=== PATIENT | female | born 1990 ===

== ENCOUNTER 2017-04-02 14:24 | Emergency (ER) | payer MEDICAID, OTHER ==
[2017-04-02 14:30] VITALS: BP 147/86; RESP 20; O2SAT 100
--- NOTE | 2017-04-02 14:40 | ED PDOC ---
HPI: CCC, URI, Sore Throat Time Seen by Provider: 04/02/17 14:33 Chief Complaint (Nursing): ENT Problem Chief Complaint (Provider): Fever and Body Aches History Per: Patient History/Exam Limitations: no limitations Have you had recent travel within the past 21 days to any of the following countries: [place], [place], [place] or [place]?: No Onset/Duration Of Symptoms: Days Current Symptoms Are (Timing): Still Present Location Of Pain: Throat Associated Symptoms: Fever Additional Complaint(s): Juani Mays, a 26 year old female, presents to the ED complaining of fever, body aches and throat pain. The patient reports that she was recently diagnosed with a tonsil infection and was prescribed antibiotics but is unsure of the name of the antibiotics. She states that she took tylenol for pain around 11am this morning. PMD: Tristan Grossman Past Medical History Reviewed: Historical Data, Nursing Documentation, Vital Signs Vital Signs: Last Vital Signs Temp 100.7 F H 04/02/17 15:38 Pulse 104 H 04/02/17 15:38 Resp 20 04/02/17 14:25 BP 147/86 04/02/17 14:25 Pulse Ox 100 04/02/17 16:01 - Medical History PMH: No Chronic Diseases Denies: Chronic Kidney Disease - Surgical History Surgical History: Cholecystectomy - Family History Family History: States: Unknown Family Hx - Immunization History Hx Tetanus Toxoid Vaccination: No Hx Influenza Vaccination: No Hx Pneumococcal Vaccination: No - Home Medications Home Medications: Ambulatory Orders Medication Instructions Recorded Mag&Al/Simet/Diphen/Lido [First 30 ml MM DAILY #1 kit 04/02/17 Magic Mouthwash] - Allergies Allergies/Adverse Reactions: Allergies Allergy/AdvReac Type Severity Reaction Status Date / Time No Known Allergies Allergy Verified 07/07/16 09:04 Review of Systems ROS Statement: Except As Marked, All Systems Reviewed And Found Negative Constitutional: Positive for: Fever, Other (body aches) ENT: Positive for: Throat Pain Physical Exam - Reviewed Nursing Documentation Reviewed: Yes Vital Signs Reviewed: Yes - Physical Exam Appears: Positive for: Non-toxic, No Acute Distress Head Exam: Positive for: ATRAUMATIC, NORMAL INSPECTION, NORMOCEPHALIC Skin: Positive for: Normal Color, Warm, Dry. Negative for: Rash Eye Exam: Positive for: Normal appearance, EOMI, PERRL. Negative for: Nystagmus ENT: Positive for: Tonsillar Exudate, Tonsillar Swelling (enlarged tonsils), Other (Uvula swelling). Negative for: Normal ENT Inspection Lymphatic: Negative for: Normal Exam (Lymph Node swelling) Neurologic/Psych: Positive for: Alert, Oriented, Gait - ECG O2 Sat by Pulse Oximetry: 100 (RA) Pulse Ox Interpretation: Normal Medical Decision Making Medical Decision Makin Initial Impression 26 year old female presenting with fever, throat pain and body aches in setting of known tonsilar infection Initial Plan: * Decadron inj 10mg * Motrin Tab 600mg PO * Reevaluation 1444 Fever will be controlled. Patient advised to continue taking antibiotics which she was previously prescribed. Vital Signs - 24 hr 04/02/17 04/02/17 04/02/17 14:25 15:38 15:40 Temperature 102.1 F H 100.7 F H Pulse Rate 125 H 104 H Respiratory 20 Rate Blood Pressure 147/86 O2 Sat by Pulse 100 100 Oximetry VS improved will be d/c with f/u with pmd and magic mouth wash Scribe Attestation Documented by Anisa Mark acting as a scribe for Manuela Manrique PA-C. MD Scribe Attestation All medical record entries made by the Scribe were at my direction and personally dictated by me. I have reviewed the chart and agree that the record accurately reflects my personal performance of the history, physical exam, medical decision making, and the department course for this patient. I have also personally directed, reviewed, and agree with the discharge instructions and disposition. Disposition - Clinical Impression Clinical Impression: Tonsillitis, Strep pharyngitis - Patient ED Disposition Is Patient to be Admitted: No Counseled Patient/Family Regarding: Need For Followup, Rx Given - Disposition Referrals: [facility] [Provider Group] Tenzin Cherry MD [Staff Provider] - Disposition: Routine/Home Disposition Time: 15:39 Condition: IMPROVED Prescriptions: Mag&Al/Simet/Diphen/Lido [First Magic Mouthwash] 30 ml MM DAILY #1 kit Instructions: Strep Throat (ED) Forms: [employer] (Kinyarwanda) Print Language: MERT ARROYO Present On Arrival: None
[2017-04-02 15:38] VITALS: PULSE 104; TEMP 100.7
== END 2017-04-02 15:44 | disposition home or self-care (01) ==
LOC: H.ER 14:24
DX: J02.0 Streptococcal pharyngitis (principal)
CPT/HCPCS: 81025; 96372; 99281; J1100

== ENCOUNTER 2017-08-13 20:55 | Emergency (ER) | payer OTHER ==
[2017-08-13 21:12] VITALS: BP 113/69; PULSE 73; RESP 16; TEMP 99.6; O2SAT 100
--- NOTE | 2017-08-13 21:30 | ED PDOC ---
HPI: Back Time Seen by Provider: 08/13/17 21:26 Chief Complaint (Nursing): Back Pain Chief Complaint (Provider): Back Pain History Per: Patient History/Exam Limitations: no limitations Onset/Duration Of Symptoms: Days (x 1) Current Symptoms Are (Timing): Still Present Additional Complaint(s): Juani is a 26 y/o female who presents to the ED after slipping and falling in her bathroom onto her back yesterday. Patient states the pain has worsened since yesterday, and she has been taking ibuprofen for the pain. Last ibuprofen was at 2pm. She admits she struck her head but denies loss of consciousness. PMD: Tristan Peck Past Medical History Reviewed: Historical Data, Nursing Documentation, Vital Signs Vital Signs: Last Vital Signs Temp 99.6 F 08/13/17 21:10 Pulse 73 08/13/17 21:10 Resp 16 08/13/17 21:10 BP 113/69 08/13/17 21:10 Pulse Ox 100 08/13/17 21:10 - Medical History PMH: Denies: Chronic Kidney Disease - Surgical History Surgical History: Cholecystectomy - Family History Family History: States: Unknown Family Hx - Immunization History Hx Tetanus Toxoid Vaccination: No Hx Influenza Vaccination: No Hx Pneumococcal Vaccination: No - Home Medications Home Medications: Ambulatory Orders Medication Instructions Recorded Mag&Al/Simet/Diphen/Lido [First 30 ml MM DAILY #1 kit 04/02/17 Magic Mouthwash] Naproxen 1 tab PO Q12 PRN #14 tab 08/13/17 diaZEpam [Valium] 5 mg PO Q6 PRN #4 tab 08/13/17 - Allergies Allergies/Adverse Reactions: Allergies Allergy/AdvReac Type Severity Reaction Status Date / Time No Known Allergies Allergy Verified 08/13/17 21:10 Review of Systems ROS Statement: Except As Marked, All Systems Reviewed And Found Negative Musculoskeletal: Positive for: Back Pain Physical Exam - Reviewed Nursing Documentation Reviewed: Yes Vital Signs Reviewed: Yes - Physical Exam Appears: Positive for: Well, Non-toxic, No Acute Distress Cardiovascular/Chest: Positive for: Chest Non Tender Back: Positive for: Vertebral Tenderness (t12, t11 parathoracic region). Negative for: Other (swelling, echymosis, deformity) Extremity: Positive for: Normal ROM Neurologic/Psych: Positive for: Alert, Oriented - ECG O2 Sat by Pulse Oximetry: 100 (RA) Pulse Ox Interpretation: Normal Medical Decision Making Medical Decision Making: Time: 21:26 Initial Impression: Back Injury Initial Plan: --Toradol --XR Dorsal Thoracic Spine Scribe Attestation: Documented by Piter Powers, acting as a scribe for Edson Reyes PA-C Provider Scribe Attestation: All medical record entries made by the Scribe were at my direction and personally dictated by me. I have reviewed the chart and agree that the record accurately reflects my personal performance of the history, physical exam, medical decision making, and the department course for this patient. I have also personally directed, reviewed, and agree with the discharge instructions and disposition. Disposition - Clinical Impression Clinical Impression: Back contusion - Patient ED Disposition Is Patient to be Admitted: No - Disposition Disposition: Routine/Home Disposition Time: 22:13 Condition: FAIR Prescriptions: diaZEpam [Valium] 5 mg PO Q6 PRN #4 tab PRN Reason: Muscle Spasm Naproxen 1 tab PO Q12 PRN #14 tab PRN Reason: Pain, Moderate (4-7) Instructions: Thoracic Back Strain (ED) Forms: [employer] (Jordanian), [facility] ED School/Work Excuse
[2017-08-13] MEDS ORDERED: Hydrogen Peroxide 3% Soln (480ml) TP ONE (23:03)
[2017-08-13] MEDS ORDERED: Lidocaine 2% w Epi 1:100,000 Inj IJ ONE (23:16)
[2017-08-13] MEDS ORDERED: Tdap Vaccine 0.5 ml Vial (10-64 yrs) IM ONE ×2 (23:16→23:56)
[2017-08-13] MEDS ORDERED: Lidocaine 1% Inj (20ml) ONE (23:18)
[2017-08-13] MEDS ORDERED: Lidocaine 1% Inj (20ml) IJ ONE (23:21)
--- NOTE | 2017-08-14 13:42 | RAD ---
HISTORY: back injury COMPARISON: No prior. FINDINGS: BONES: Alignment maintained. No fracture. DISC SPACES: Normal. SOFT TISSUES: Normal. OTHER FINDINGS: None. IMPRESSION: Normal radiographs of the thoracic spine.
== END 2017-08-14 00:11 | disposition home or self-care (01) ==
LOC: H.ER 20:55
DX: S39.92XA Unspecified injury of lower back, initial encounter (principal); S01.01XA Laceration without foreign body of scalp, initial encounter; W01.0XXA Fall on same level from slipping, tripping and stumbling without subsequent striking against object, initial encounter; Y92.002 Bathroom of unspecified non-institutional (private) residence as the place of occurrence of the external cause
CPT/HCPCS: 12001; 72070; 81025; 90471; 90715; 96372; 99284; J1885

== ENCOUNTER 2017-08-22 19:20 | Emergency (ER) | payer OTHER ==
[2017-08-22 19:37] VITALS: BP 114/75; PULSE 74; RESP 16; TEMP 98.1; O2SAT 100
--- NOTE | 2017-08-22 21:01 | ED PDOC ---
HPI: Wound Care - HPI Time Seen by Provider: 08/22/17 20:09 Chief Complaint (Nursing): Suture/Staple Removal Chief Complaint (Provider): Suture/Staple Removal History Per: Patient Exam Limitations: no limitations Additional Complaint(s): Patient presents to the ED for suture removal. States sutures were placed on 04/20 to her scalp. Patient reports cleaning the wound every 2-3 days. Otherwise: (-) fever, (-) chills, (-) discharge. PMD: Provider TBD Past Medical History Reviewed: Historical Data, Nursing Documentation, Vital Signs Vital Signs: Last Vital Signs Temp 98.1 F 08/22/17 19:34 Pulse 74 08/22/17 19:34 Resp 16 08/22/17 19:34 BP 114/75 08/22/17 19:34 Pulse Ox 100 08/22/17 19:34 - Medical History PMH: Denies: Chronic Kidney Disease - Surgical History Surgical History: Cholecystectomy - Family History Family History: States: Unknown Family Hx - Immunization History Hx Tetanus Toxoid Vaccination: No Hx Influenza Vaccination: No Hx Pneumococcal Vaccination: No - Home Medications Home Medications: Ambulatory Orders Medication Instructions Recorded Mag&Al/Simet/Diphen/Lido [First 30 ml MM DAILY #1 kit 04/02/17 Magic Mouthwash] Naproxen 1 tab PO Q12 PRN #14 tab 08/13/17 Cephalexin [Keflex] 500 mg PO QID #20 capsule 08/14/17 - Allergies Allergies/Adverse Reactions: Allergies Allergy/AdvReac Type Severity Reaction Status Date / Time No Known Allergies Allergy Verified 08/13/17 21:10 Review of Systems ROS Statement: Except As Marked, All Systems Reviewed And Found Negative Constitutional: Negative for: Fever, Chills Skin: Positive for: Lesions (sutured wound to scalp). Negative for: Rash, Other (drainage) Neurological: Negative for: Headache, Dizziness Physical Exam - Reviewed Nursing Documentation Reviewed: Yes Vital Signs Reviewed: Yes - Physical Exam Comments: GENERAL APPEARANCE: Patient is awake, alert, oriented x 3, in no acute distress. SKIN: Warm, dry; (-) cyanosis; (-) rash. HEAD: Healing, stapled wound to parietal aspect of scalp. No discharge, redness. Good wound healing. EYES: (-) conjunctival pallor, (-) scleral icterus. - ECG O2 Sat by Pulse Oximetry: 100 (RA) Pulse Ox Interpretation: Normal Medical Decision Making Medical Decision Making: Impression: Staple removal Time: 20:31 Kun easily removed by PA, patient tolerated removal well. Advised patient to clean with soap and water. Advised to follow up with primary care physician/the clinic as needed. Return to the emergency room at any time for any new or worsening symptoms. Patient states she fully agrees with and understands discharge instructions. States that she agrees with the plan and disposition. Verbalized and repeated discharge instructions and plan. I have given the patient opportunity to ask any additional questions. Scribe Attestation: Documented by Alexandria Lange, acting as a scribe for Emi Mckenna PA-C Provider Scribe Attestation: All medical record entries made by the Scribe were at my direction and personally dictated by me. I have reviewed the chart and agree that the record accurately reflects my personal performance of the history, physical exam, medical decision making, and the department course for this patient. I have also personally directed, reviewed, and agree with the discharge instructions and disposition. Disposition - Clinical Impression Clinical Impression: Removal of staple, Visit for wound check - Patient ED Disposition Is Patient to be Admitted: No Counseled Patient/Family Regarding: Diagnosis, Need For Followup - Disposition Referrals: [facility] [Outside] Naveed Tenorio MD [Staff Provider] - Disposition: Routine/Home Disposition Time: 20:55 Condition: STABLE Additional Instructions: Thank you for letting us take care of you today. You were treated for staple removal, wound check. The emergency medical care you received today was directed at your acute symptoms. Clean wound with regular soap and water. It may take several days for your symptoms to resolve. Return to the Emergency Department if your symptoms worsen, do not improve, or if you have any other problems. Please contact your doctor in 2 days for re-evaluation and follow up / or call one of the physicians/clinics you have been referred to that are listed on the Patient Visit Information form that is included in your discharge packet. Bring any paperwork you were given at discharge with you along with any medications you are taking to your follow up visit. Our treatment cannot replace ongoing medical care by a primary care provider (PCP) outside of the emergency department. Thank you for allowing the [facility] team to be part of your care today. Instructions: Wound Care (DC), Staple Removal Forms: [employer] (Malian), [facility] ED School/Work Excuse - POA Present On Arrival: None
== END 2017-08-22 21:08 | disposition home or self-care (01) ==
LOC: H.ER 19:20
DX: Z48.02 Encounter for removal of sutures (principal)

== ENCOUNTER 2018-04-21 19:46 | Emergency (ER) | payer OTHER ==
[2018-04-21 20:03] VITALS: O2SAT 100
[2018-04-21] MEDS ORDERED: Dexamethasone 4 mg/1 ml IM STA (20:18)
--- NOTE | 2018-04-21 20:24 | ED PDOC ---
HPI: CCC, URI, Sore Throat Time Seen by Provider: 04/21/18 20:04 Chief Complaint (Nursing): ENT Problem Chief Complaint (Provider): body aches and sore throat History Per: Patient History/Exam Limitations: no limitations Onset/Duration Of Symptoms: Days (x1) Current Symptoms Are (Timing): Still Present Location Of Pain: Throat. denies: Ear(s) Sick Contacts (Context): None Associated Symptoms: Fever, Chills, Sore Throat. denies: Cough, Nausea, Vomiting, Diarrhea Ear Symptoms: Bilateral: None Additional Complaint(s): Juani Mays is a 27 year old female, with no significant past medical history, who presents to the emergency department complaining of body aches, sore throat and fever onset since yesterday. Patient reports a Tmax of 103 and states her last measured temp was 101. She has been taking Ibuprofen for symptoms, last dose today 3pm. She denies any cough, congestion, nausea, vomit, diarrhea, ear pain, chest pain, shortness of breath, abdominal pain, sick contacts or recent travel. No further medical complaints. PMD: Tristan Peck Past Medical History Reviewed: Historical Data, Nursing Documentation, Vital Signs Vital Signs: Last Vital Signs Temp 101.5 F H 04/21/18 20:00 Pulse 121 H 04/21/18 20:00 Resp 20 04/21/18 20:00 BP 107/77 04/21/18 20:00 Pulse Ox 100 04/21/18 20:00 - Medical History PMH: No Chronic Diseases - Surgical History Surgical History: Cholecystectomy - Family History Family History: States: Unknown Family Hx - Social History Current smoker - smoking cessation education provided: No Alcohol: None Drugs: Denies - Home Medications Home Medications: Ambulatory Orders Medication Instructions Recorded RX: Mag&Al/Simet/Diphen/Lido 30 ml MM DAILY #1 kit 04/02/17 [First Magic Mouthwash] RX: Naproxen 1 tab PO Q12 PRN #14 tab 08/13/17 Cephalexin [Keflex] 500 mg PO QID #20 capsule 08/14/17 Acetaminophen [Acetaminophen 8 650 mg PO Q8 PRN #21 tablet.er 04/21/18 Hour] RX: Amoxicillin 875 mg PO BID #14 tablet 04/21/18 RX: Ibuprofen [Motrin Tab] 800 mg PO Q8 PRN #21 tab 04/21/18 - Allergies Allergies/Adverse Reactions: Allergies Allergy/AdvReac Type Severity Reaction Status Date / Time No Known Allergies Allergy Verified 04/21/18 20:00 Review of Systems ROS Statement: Except As Marked, All Systems Reviewed And Found Negative Constitutional: Positive for: Fever, Chills, Other (body aches) ENT: Positive for: Throat Pain. Negative for: Ear Pain, Nose Congestion Cardiovascular: Negative for: Chest Pain Respiratory: Negative for: Cough, Shortness of Breath Gastrointestinal: Negative for: Nausea, Vomiting, Abdominal Pain, Diarrhea Physical Exam - Reviewed Nursing Documentation Reviewed: Yes Vital Signs Reviewed: Yes - Physical Exam Comments: GENERAL APPEARANCE: Patient is awake, alert, oriented x 3, in no acute distress. Resting comfortably. SKIN: Warm, dry; (-) cyanosis, (-) rash. EYES: (-) conjunctival pallor, (-) scleral icterus, (-) conjunctival hemorrhage. ENMT: Mucous membranes moist. TMs: Non-bulging, (-) erythema. Airway patent: (-) stridor. Pharynx: (+) bilateral tonsillar erythema, 2+ hypertrophy, (+) bilateral exudates. Uvula midline. (-) muffled voice (-) sinus tenderness CARDIAC: (-) irregularity RESPIRATORY: lungs clear to auscultation bilaterally (-) rales (-) rhonchi (- )wheezing. Respirations even and nonlabored, speaks in full sentences. NECK: Supple, FROM (-) tenderness, (-) stiffness, (-) meningismus, (+) anterior cervical lymphadenopathy. ABDOMEN AND GI: Soft; (-) tenderness EXTREMITIES: (-) deformity NEURO AND PSYCH: Mental status as above; (-) focal findings. Gait: steady. Speech: clear. - Laboratory Results Urine POC: Negative - ECG O2 Sat by Pulse Oximetry: 100 (RA) Pulse Ox Interpretation: Normal Medical Decision Making Medical Decision Making: Time: 20:00 Initial Impression: Tonsillitis, Fever Initial Plan: -- test --Amoxicillin 500 mg PO --Decadron Inj 10 mg IM --Tylenol 650 mg PO --Rapid Strep Group A Antigen --Reevaluation Upreg: negative 2054 Rapid Strep: Positive. 2149 Repeat temp oral: 100.4 Repeat HR: 115 Ibuprofen 600mg PO ordered. 2300 Repeat HR: 90 Repeat Temp: 98.6 (oral) On re-evaluation, patient reports improvement of symptoms. On exam, patient remains AAOx3, in no acute distress. Lungs clear to auscultation, cardiac RRR, abdomen soft, non-tender, repeat neuro exam shows no focal findings. Vitals stable. Patient educated on antipyretic use. Lab/Diagnostic results d/w the patient in great detail. Diagnosis of tonsillitis, fever, strep pharyngitis d/w the patient. Based on history, exam and diagnostic results, plan will be for outpatient follow up with PMD/ENT. Patient instructed to follow-up with pmd / referral provided / the clinic in 1- 2 days without fail. Advised to take medication as prescribed. Return to the emergency room at any time for any new or worsening symptoms. Patient states she fully agrees with and understands discharge instructions. States that she agrees with the plan and disposition. Verbalized and repeated discharge instructions and plan. I have given the patient opportunity to ask any additional questions. Scribe Attestation: Documented by Felix Escobedo, acting as a scribe for Marge Jacobsen PA-C Provider Scribe Attestation: All medical record entries made by the Scribe were at my direction and personally dictated by me. I have reviewed the chart and agree that the record accurately reflects my personal performance of the history, physical exam, medical decision making, and the department course for this patient. I have also personally directed, reviewed, and agree with the discharge instructions and disposition. Disposition - Clinical Impression Clinical Impression: Tonsillitis, Fever, Strep pharyngitis - Patient ED Disposition Is Patient to be Admitted: No Counseled Patient/Family Regarding: Studies Performed, Diagnosis, Need For Followup, Rx Given - Disposition Referrals: Tristan Peck MD [Family Provider] - Tenzin Cherry MD [Staff Provider] - Disposition: Routine/Home Disposition Time: 23:00 Condition: STABLE Additional Instructions: The emergency medical care you received today was directed at your acute symptoms. If you were prescribed any medication, please fill it and take as directed. It may take several days for your symptoms to resolve. Return to the Emergency Department if your symptoms worsen, do not improve, or if you have any other problems. Please contact your doctor in 2 days for re-evaluation and follow up / or call one of the physicians/clinics you have been referred to that are listed on the Patient Visit Information form that is included in your discharge packet. Bring any paperwork you were given at discharge with you along with any medications you are taking to your follow up visit. Our treatment cannot replace ongoing medical care by a primary care provider (PCP) outside of the emergency department. Prescriptions: Acetaminophen [Acetaminophen 8 Hour] 650 mg PO Q8 PRN #21 tablet.er PRN Reason: Fever >100.4 F RX: Amoxicillin 875 mg PO BID #14 tablet RX: Ibuprofen [Motrin Tab] 800 mg PO Q8 PRN #21 tab PRN Reason: Pain, Moderate (4-7) Instructions: Sore Throat, Adult (DC), Strep Throat (DC), Fever, Adult (DC) Forms: [employer] (Greek), [facility] ED School/Work Excuse Print Language: KINYARWANDA - POA Present On Arrival: None Results - Lab Results Lab Results: 04/21/18 20:28 Grp A Beta Strep Ag Positive H
[2018-04-21 21:50] VITALS: RESP 18
[2018-04-21 23:15] VITALS: BP 121/76; PULSE 90; TEMP 98.6
== END 2018-04-21 23:18 | disposition home or self-care (01) ==
LOC: H.ER 19:46
DX: J03.90 Acute tonsillitis, unspecified (principal); J02.0 Streptococcal pharyngitis; R50.9 Fever, unspecified
CPT/HCPCS: 81025; 87430; 96372; 99283; J1100